=== PATIENT | female | born 1995 | race Caucasian/White ===

== ENCOUNTER 2021-07-15 06:01 | Emergency (ER) | payer BC ==
[~2021-07-15] VITALS: Ht 172.7 cm; Wt 96.0 kg
[2021-07-15] MEDS ORDERED: IBUPROFEN 600MG TABLET PO ONE (07:45)
[2021-07-15] MEDS ORDERED: IBUP-2028 MT (09:14)
[2021-07-15 09:26] VITALS: BP 118/70
== END 2021-07-15 09:26 | disposition home or self-care (01) ==
LOC: ER 06:01
DX: S93.491A Sprain of other ligament of right ankle, initial encounter (principal); S93.492A Sprain of other ligament of left ankle, initial encounter; W18.39XA Other fall on same level, initial encounter; Y93.89 Activity, other specified; Y92.89 Other specified places as the place of occurrence of the external cause; Y99.8 Other external cause status; Z98.890 Other specified postprocedural states
CPT/HCPCS: 73562; 73590; 73610; 73630; 99284